=== PATIENT | male | born 1985 | race Caucasian/White ===

== ENCOUNTER 2020-02-25 21:41 | Emergency (ER) | payer SELFPAY ==
[~2020-02-25] VITALS: Ht 170.2 cm; Wt 79.3 kg
[2020-02-25 21:41] VITALS: BP 118/73
--- NOTE | 2020-02-25 22:14 | PHYS DOC ---
Past History Past Medical History: Constipation General Adult HPI: HPI: "..I hurt .. I am constipated.....I am so constipated now...I am having trouble urinating...".. " This has happen maybe 4 times .. I get this bad..... I get constipation..all the time ..but only this bad four times..." Patient is a 34 year old male who presents with above hx and complaints constipation obstipation. Patient has chronic history of constipation, but states currently he has been unable to pass stool because it is too hard. Patient not taking anything for his constipation. Patient has had some bleeding and some small balls of hard stool that he has been able to pass. Patient denies any history immunosuppression. No history recent travel outside the [place] area. Patient works at [employer]. Patient normally follows with at urgent care clinics. Review of Systems: Review of Systems: Constitutional: Denies fever or chills Eyes: Denies change in visual acuity HENT: Denies nasal congestion or sore throat Respiratory: Denies cough or shortness of breath Cardiovascular: Denies chest pain or edema GI: Complains of constipation abdominal pain,. Denies nausea, vomiting, bloody stools or diarrhea : Denies dysuria Musculoskeletal: Denies back pain or joint pain Integument: Denies rash Neurologic: Denies headache, focal weakness or sensory changes Endocrine: Denies polyuria or polydipsia Lymphatic: Denies swollen glands Psychiatric: Denies depression or anxiety Heart Score: Risk Factors: Risk Factors: DM, Current or recent (<one month) smoker, HTN, HLP, family history of CAD, obesity. Risk Scores: Score 0 - 3: 2.5% MACE over next 6 weeks - Discharge Home Score 4 - 6: 20.3% MACE over next 6 weeks - Admit for Clinical Observation Score 7 - 10: 72.7% MACE over next 6 weeks - Early Invasive Strategies Family History: Family History: Noncontributory Current Medications: Current Meds: See nursing for home meds Physical Exam: PE: Constitutional: in acute distress, non-toxic appearance. [] HENT: Normocephalic, atraumatic, bilateral external ears normal, oropharynx moist, no oral exudates, nose normal. [] Eyes: PERRLA, EOMI, conjunctiva normal, no discharge. [] Neck: Normal range of motion, no tenderness, supple, no stridor. [] Cardiovascular:Heart rate regular rhythm, no murmur [] Lungs & Thorax: Bilateral breath sounds equal apex scattered wheezes auscultation [] Abdomen: Bowel sounds normal, soft, distended generalized tenderness, rectal ten derness, no masses, no pulsatile masses. [] Impacted stool. Does have a rectal fissure Skin: Warm, dry, no erythema, no rash. [] Back: No tenderness, no CVA tenderness. [] Extremities: No tenderness, no cyanosis, no clubbing, ROM intact, no edema. [] Neurologic: Alert and oriented X 3, normal motor function, normal sensory function, no focal deficits noted. [] Psychologic: Affect normal, judgement normal, mood normal. [] EKG: EKG: [] Radiology/Procedures: Radiology/Procedures: [][address] [place] [address] IMAGING REPORT Signed PATIENT: CARLOS ENRIQUE LÓPEZ ACCOUNT: [id number] : 1985 LOCATION: ER AGE: 34 SEX: M EXAM STATUS: DEP ER ORD. PHYSICIAN: KE MALIK MD REASON: Abdomen pain, constipation PROCEDURE: ACUTE ABDOMEN SERIES Study: CR ACUTE ABDOMEN SERIES Indication: Abdominal pain. Constipation. Comparison: None. Findings: Unremarkable lungs and cardiomediastinal silhouette/indu. Nonobstructive bowel gas pattern. Mild volume well-formed stool. No free air. No radiographic evidence for organomegaly. No concerning calcifications. Impression: Nonobstructive bowel gas pattern. Mild volume well-formed stool burden. No acute radiographic abnormality of the chest. Electronically signed by: BRADFORD AYALA MD (02/26/2020 1:46 AM) [id number] DICTATED AND SIGNED BY: BRADFORD AYALA MD DATE: 02/26/20 0146 CC: KE MALIK MD; PCP,NO ~ Course & Med Decision Making: Course & Med Decision Making Pertinent Labs and Imaging studies reviewed. (See chart for details) Patient digitally disimpacted- Patient refused to give urine stated that was not a problem. Patient stay on a clear fluid diet only. Patient to drink GoLYTELY 8 ounces a day every day until stooling regular. Patient take only Tylenol for pain. Patient follow-up primary care. Patient return if any concerns. Impression: 1. Constipated obstipation 2. Rectal fissure [] Dragon Disclaimer: Dragon Disclaimer: This electronic medical record was generated, in whole or in part, using a voice recognition dictation system. Departure Departure: Disposition: 01 HOME/RESIDENCE PRIOR TO ADM Condition: STABLE Referrals: PCP,NO (PCP) Scripts Peg 3350/Na Sulf,Bicarb,Cl/Kcl (GOLYTELY SOLUTION) 4,000 Ml Soln.recon 4000 ML PO x1 for constipation, #1 MISC Prov: KE MALIK MD 02/25/20 Justification of Admission: Justification of Admission: Justification of Admission Dx: N/A Dragon Disclaimer This chart was dictated in whole or in part using Voice Recognition software in a busy, high-work load, and often noisy Emergency Department environment. It may contain unintended and wholly unrecognized errors or omissions. Dragon Disclaimer This chart was dictated in whole or in part using Voice Recognition software in a busy, high-work load, and often noisy Emergency Department environment. It may contain unintended and wholly unrecognized errors or omissions. KE MALIK MD Feb 25, 2020 22:14
[2020-02-25] MEDS ORDERED: GLYCERIN ADULT 1 SUPP.RECT. ONE (22:50)
[2020-02-25] MEDS ORDERED: MAGNESIUM CITRATE 296 ML SOLUTION. PO ONE (23:00)
[2020-02-25] MEDS ORDERED: GLYCERIN ADULT 1 SUPP.RECT. PR ONE (23:00)
[2020-02-25] MEDS ORDERED: MAGNESIUM CITRATE 296 ML SOLUTION. ONE (23:14)
[2020-02-25] MEDS ORDERED: PEG4000S8 PO (23:51)
--- NOTE | 2020-02-26 01:49 | RAD ---
Study: CR ACUTE ABDOMEN SERIES Indication: Abdominal pain. Constipation. Comparison: None. Findings: Unremarkable lungs and cardiomediastinal silhouette/indu. Nonobstructive bowel gas pattern. Mild volume well-formed stool. No free air. No radiographic evidence for organomegaly. No concerning calcifications. Impression: Nonobstructive bowel gas pattern. Mild volume well-formed stool burden. No acute radiographic abnormality of the chest. Electronically signed by: BRADFORD AYALA MD (02/26/2020 1:46 AM) [id number]
== END 2020-02-25 23:55 | disposition home or self-care (01) ==
LOC: ER 21:41
DX: K59.00 Constipation, unspecified (principal); K60.2 Anal fissure, unspecified
CPT/HCPCS: 74022; 99283

== ENCOUNTER 2021-01-09 12:33 | Emergency (ER) | payer SELFPAY ==
[~2021-01-09] VITALS: Ht 170.2 cm; Wt 75.0 kg
[~2021-01-09 12:33] MED LIST: PEG4000S8 PO
[2021-01-09] MEDS ORDERED: MORPHINE SULFATE 4 MG/ML DISP.SYRIN. IV ONE ×2 (13:30→14:00)
[2021-01-09] MEDS ORDERED: DIPH,PERTUSS(ACELL),TET VAC/PF 0.5 ML SYRINGE. VAX IM ONE ×2 (13:45→13:54)
--- NOTE | 2021-01-09 13:50 | PHYS DOC ---
Past History Past Medical History: Constipation (TIFFANIE LANTIGUA APRN) Past Surgical History: No Surgical History (TIFFANIE LANTIGUA APRN) Alcohol Use: Rarely (TIFFANIE LANTIGUA APRN) General Adult EDM: Chief Complaint: CELLULITIS HPI: HPI: Patient is a 35-year-old male who presents with abscess to right palm of his hand. Patient states "3 days ago it woke up and just I had a wound to my right hand" "I am unable to use my hand all the way". Patient reports numbness, tingling, pain. Patient states he has been using Neosporin and trying to keep it wrapped. Wound is swollen, red and draining. Denies taking anything for pain. Tetanus is not up-to-date. Denies fever. Denies medical history. (TIFFANIE LANTIGUA APRN) Review of Systems: Review of Systems: Constitutional: Denies fever or chills Eyes: Denies change in visual acuity HENT: Denies nasal congestion or sore throat Respiratory: Denies cough or shortness of breath Cardiovascular: Denies chest pain or edema GI: Denies abdominal pain, nausea, vomiting, bloody stools or diarrhea : Denies dysuria Musculoskeletal: Denies back pain or joint pain Integument: Right hand swelling, drainage Neurologic: Denies headache, focal weakness or sensory changes Endocrine: Denies polyuria or polydipsia Lymphatic: Denies swollen glands Psychiatric: Denies depression or anxiety (TIFFANIE LANTIGUA APRN) Current Medications: Current Meds: Current Medications Medications (Trade) Dose Ordered Sig/Olena Start Time Stop Time Status Last Admin Dose Admin Diphtheria/ Pertussis/Tetanus Vacc (ADACEL TDap SYRINGE) 0.5 ml ONCE ONCE 01/09/21 13:45 01/09/21 13:46 UNV Morphine Sulfate (Morphine 4mg Syringe) 4 mg 1X ONCE 01/09/21 13:30 01/09/21 13:31 DC (TIFFANIE LANTIGUA APRN) Allergies: Allergies: Allergies Coded Allergies Type Severity Reaction Last Updated Verified No Known Drug Allergies 01/09/21 No (TIFFANIE LANTIGUA APRN) Physical Exam: PE: Constitutional: Well developed, well nourished, no acute distress, non-toxic appearance. [] HENT: Normocephalic, atraumatic, bilateral external ears normal, oropharynx moist, no oral exudates, nose normal. [] Eyes: PERRLA, EOMI, conjunctiva normal, no discharge. [] Neck: Normal range of motion, no tenderness, supple, no stridor. [] Cardiovascular:Heart rate regular rhythm, no murmur [] Lungs & Thorax: Bilateral breath sounds clear to auscultation [] Abdomen: Bowel sounds normal, soft, no tenderness, no masses, no pulsatile masses. [] Skin: Swelling, drainage, redness Back: No tenderness, no CVA tenderness. [] Extremities: Right hand tenderness, swelling, drainage Neurologic: Alert and oriented X 3, normal motor function, normal sensory function, no focal deficits noted. [] Psychologic: Affect normal, judgement normal, mood normal. [] (TIFFANIE LANTIGUA APRN) Current Patient Data: Vital Signs: Vital Signs Date Time Temp Pulse Resp B/P (MAP) Pulse Ox O2 Delivery O2 Flow Rate FiO2 01/09/21 12:52 98.5 80 18 143/73 98 Room Air (TIFFANIE LANTIGUA APRN) EKG: EKG: [] (TIFFANIE LANTIGUA APRN) Radiology/Procedures: Radiology/Procedures: []EXAMINATION: Right and radiograph. VIEWS: 3 COMPARISON: None INDICATION:35 years, Male, swelling. FINDINGS: No acute fracture, dislocation or subluxation. No bone erosion or periosteal reaction. Olivo soft tissue swelling. IMPRESSION: Olivo soft tissue swelling without acute osseous process. Electronically signed by: Arnel Ellis MD (01/09/2021 2:11 PM) [id number] (TIFFANIE LANTIGUA APRN) Heart Score: C/O Chest Pain: No Risk Factors: Risk Factors: DM, Current or recent (<one month) smoker, HTN, HLP, family history of CAD, obesity. Risk Scores: Score 0 - 3: 2.5% MACE over next 6 weeks - Discharge Home Score 4 - 6: 20.3% MACE over next 6 weeks - Admit for Clinical Observation Score 7 - 10: 72.7% MACE over next 6 weeks - Early Invasive Strategies (TIFFANIE LANTIGUA APRN) Course & Med Decision Making: Course & Med Decision Making Pertinent Labs and Imaging studies reviewed. (See chart for details) [] 35-year-old male presents with abscess to the right palm of his hand. Patient states that he thinks he was bit by something 3 days ago. Patient unable to close hand completely due to swelling. Palm is red, swollen drainage. Patient is also reporting numbness and tingling. Patient given 4 mg of morphine for pain. Tetanus was given. Vitals are stable and patient is afebrile. Patient started on vancomycin, 1 g. I consulted with Ortho. and spoke with Dr. Francis who wants to admit patient to [facility] for cellulitis of hand. Spoke with hospitalist Dr. Meyers, who will be accepting patient.. Dr. Arshad wanted patient started on Zosyn as well. WBC 13.1, creatinine 0.6. Hand x-ray was unremarkable. Shows soft tissue swelling to right palm. Patient reports he is still having pain. Patient given 1 of Dilaudid. Discussed admission plan with patient. Patient is okay with plan to be transferred to [facility]. Patient is hemodynamically stable. (TIFFANIE LANTIGUA APRN) Dragon Disclaimer: Dragon Disclaimer: This electronic medical record was generated, in whole or in part, using a voice recognition dictation system. (TIFFANIE LANTIGUA APRN) Departure Departure: Impression: Primary Impression: Cellulitis Qualified Codes: L03.818 - Cellulitis of other sites Disposition: 02 SHORT TERM HOSPITAL Admitting Physician: Other (TIFFANIE LANTIGUA APRN) Condition: STABLE Referrals: PCP,NO (PCP) Attending Signature Attending Signature I have participated in the care of this patient and I have reviewed and agree with all pertinent clinical information above including history, exam, and recommendations. (KE MALIK MD) TIFFANIE LANTIGUA APRN Jan 09, 2021 13:50 EK MALIK MD Jan 10, 2021 03:33
[2021-01-09] MEDS ORDERED: IV NORMAL SALINE 1,000ML 1,000 ML IV ONE (14:00)
[2021-01-09] MEDS ORDERED: VANCOMYCIN PER PHARMACY MC PRN (14:00)
[2021-01-09 14:03] LABS: BASO # 0.1 x10^3/uL (0.0-0.2); BASO % 1 % (0-3); EOS # 0.1 x10^3/uL (0.0-0.7); EOS % 1 % (0-3); HEMATOCRIT 37.5 % (39.0-53.0); HEMOGLOBIN 12.6 g/dL (13.0-17.5); LYMPH # 1.7 x10^3/uL (1.0-4.8); LYMPH % 13 % (24-48); MEAN CORPUSCULAR HEMOGLOBIN 28 pg (25-35); MEAN CORPUSCULAR HGB CONC 34 g/dL (31-37); MEAN CORPUSCULAR VOLUME 83 fL (79-100); MONO # 0.9 x10^3/uL (0.0-1.1); MONO % 7 % (0-9); NEUT # 10.3 x10^3uL (1.8-7.7); NEUT % 78 % (31-73); PLATELET COUNT 423 x10^3/uL (140-400); RED BLOOD COUNT 4.52 x10^6/uL (4.30-5.70); RED CELL DISTRIBUTION WIDTH 15.1 % (11.5-14.5); WHITE BLOOD COUNT 13.1 x10^3/uL (4.0-11.0)
[2021-01-09] MEDS ORDERED: VANCOMYCIN 1 GM VIAL. ONE (14:07)
[2021-01-09] MEDS ORDERED: IV NORMAL SALINE 500ML 500 ML ONE (14:07)
--- NOTE | 2021-01-09 14:13 | RAD ---
EXAMINATION: Right and radiograph. VIEWS: 3 COMPARISON: None INDICATION:35 years, Male, swelling. FINDINGS: No acute fracture, dislocation or subluxation. No bone erosion or periosteal reaction. Olivo soft ti ssue swelling. IMPRESSION: Olivo soft tissue swelling without acute osseous process. Electronically signed by: Arnel Ellis MD (01/09/2021 2:11 PM) [id number]
[2021-01-09] MEDS ORDERED: VANCOMYCIN 2 GM in IV NORMAL SALINE 500ML 500 ML IV ONE (14:15)
[2021-01-09 14:16] LABS: CREATININE 0.6 mg/dL (0.7-1.3); GFR 153.3
[2021-01-09] MEDS ORDERED: HYDROmorphone PF 1 MG/ML DISP.SYRIN IVP ONE ×3 (14:30→21:00)
[2021-01-09 15:28] LABS: BARBITURATES NEG (NEG); BENZODIAZEPINES NEG (NEG); CANNABINOIDS POS (NEG); COCAINE NEG (NEG); METHADONE NEG (NEG); OPIATES POS (NEG); PHENCYCLIDINE NEG (NEG)
[2021-01-09 15:30] LABS: AMPHETAMINE/METHAMPHETAMINE NEG (NEG)
[2021-01-09 15:34] LABS: BILIRUBIN,URINE NEG (NEG); CLARITY,URINE CLEAR; COLOR,URINE YELLOW; GLUCOSE,URINE NEG (NEG)
[2021-01-09 15:35] LABS: NITRITE,URINE NEG (NEG); UROBILINOGEN,URINE 0.2 mg/dL (0.2 mg/dL)
[2021-01-09 15:36] LABS: BACTERIA,URINE 0 /HPF (0-FEW); RBC,URINE RARE /HPF (0-2); SQUAMOUS EPITHELIAL CELL,UR OCC /LPF; WBC,URINE RARE /HPF (0-4)
[2021-01-09] MEDS ORDERED: LORazepam 1 MG TABLET PO ONE ×2 (17:30→21:00)
[2021-01-09] MEDS ORDERED: PIPERACILLIN/TAZOBACTAM 3.375 GM VIAL IV ONE (20:43)
[2021-01-09] MEDS ORDERED: IV NORMAL SALINE 50ML 50 ML ONE (20:43)
[2021-01-09 20:50] VITALS: BP 145/87
[2021-01-09] MEDS ORDERED: PIPERACILLIN/TAZOBACTAM 3.375 GM in IV NORMAL SALINE 50ML 50 ML IV ONE (21:00)
== END 2021-01-09 21:30 | disposition short-term general hospital (02) ==
LOC: ER 12:33
DX: L03.113 Cellulitis of right upper limb (principal); R20.0 Anesthesia of skin; K59.00 Constipation, unspecified
CPT/HCPCS: 36415; 73130; 80048; 80307; 81001; 85025; 90471; 90715; 96365; 96367; 96375; 96376; 99285; J1170; J2270; J2543; J3370; J7030; J7040

== ENCOUNTER 2021-04-04 04:06 | Emergency (ER) | payer SELFPAY ==
[~2021-04-04] VITALS: Ht 170.2 cm; Wt 70.0 kg
--- NOTE | 2021-04-04 04:27 | PHYS DOC ---
Past History Past Medical History: Constipation Past Surgical History: No Surgical History Alcohol Use: Rarely Adult General Chief Complaint Chief Complaint: HAND PROBLEM HPI HPI Patient is a 35-year-old male presenting for skin lesions. This is an acute on chronic problem. Reports numerous track dennison all over bilateral upper extremities most focal to his antecubital regions but reports he does not do any drugs. States he uses his hands a lot and has been doing a lot of sink work, states he might of gotten iron/metallic filament stuck in his hands causing the dennison. Reports he has a lesion on his left palmar surface of hand that enlarged into a fluid-filled pustule that popped after stimulation. Denies any mucopurulent discharge but clear fluid-filled blister like material was expressed. He was concern for infection and presented to our ER for evaluation. He otherwise takes Adderall with no recent medication/dose changes, no other known medical issues, denies tobacco alcohol or illicit drug use Review of Systems Review of Systems Fourteen body systems of review of systems have been reviewed. See HPI for pertinent positives and negative responses, other rios all other systems are negative, non-pertinent or non-contributory Allergies Allergies Allergies Coded Allergies Type Severity Reaction Last Updated Verified No Known Drug Allergies 01/09/21 No Physical Exam Physical Exam Constitutional: Well developed, well nourished, no acute distress, non-toxic appearance. HENT: Normocephalic, atraumatic, bilateral external ears normal, oropharynx moist, no oral exudates, nose normal. Eyes: PERRLA, EOMI, conjunctiva injected bilaterally, no discharge. Neck: Normal range of motion, no tenderness, supple, no stridor. Cardiovascular: Heart rate regular, heart sounds unremarkable with no murmurs rubs or gallops Lungs & Thorax: No respiratory distress or accessory muscle use, bilateral chest rise, clear to auscultation bilaterally Abdomen: Abdomen soft, non-tender, bowel sounds present in all quadrants, no guarding or rebound, nonacute abdomen. Skin: Warm, dry, no erythema, has several scratches present to bilateral upper extremities in addition to areas of self excoriation to bilateral upper extremities with my significant area on left palmar surface of hand Back: No tenderness, no CVA tenderness. Extremities: No tenderness, no cyanosis, no clubbing, ROM intact, no edema. Neurologic: Alert and oriented X 3, grossly normal motor & sensory function, no focal deficits noted. Psychologic: Scattered thought process, pressured speech, appears actively under the influence of unknown medication Current Patient Data Vital Signs Vital Signs Date Time Temp Pulse Resp B/P (MAP) Pulse Ox O2 Delivery O2 Flow Rate FiO2 04/04/21 04:23 98.2 84 22 149/101 (117) 95 Room Air EKG EKG [] Radiology/Procedures Radiology/Procedures [] Heart Score C/O Chest Pain: No Risk Factors: Risk Factors: DM, Current or recent (<one month) smoker, HTN, HLP, family history of CAD, obesity. Risk Scores: Risk Factors: DM, Current or recent (<one month) smoker, HTN, HLP, family history of CAD, obesity. Course & Med Decision Making Course & Med Decision Making ABCs unremarkable History and physical examination nonconcerning for any emergent or surgical issues Patient has numerous concerning skin findings which based on clinical picture concerning for ongoing IV drug abuse. He also appears high from an unknown substance, I question marijuana and/or methamphetamine Discussed really care with patient. Joint decision made to apply triple antibiotic ointment to recently popped pustule on left palm and wrap. Also joint decision to administer 1 g Rocephin prior to ER departure Close follow-up with primary care provider advised for continuity of care and to review ER visit today. Strict return precautions were discussed with verbalized understanding by patient. All questions and concerns addressed prior to ER departure Dragon Disclaimer Dragon Disclaimer This electronic medical record was generated, in whole or in part, using a voice recognition dictation system. Departure Departure: Impression: Primary Impression: Skin infection Disposition: HOME / SELF CARE / HOMELESS Condition: STABLE Referrals: PCP,NO (PCP) Additional Instructions: As discussed prior to ER departure, your vitals and physical exam were nonconcerning for any emergent or surgical issues. Triple antibiotic ointment was applied to your left palm and you were given IM Rocephin antibiotic for your suspect skin lesion infections. Please stop picking at your skin. Please continue good skin hygiene washing with soap and water daily. Please also follow-up with your primary care provider to review ER visit today and for continuity of care. Any concerning signs or symptoms present do not hesitate to come back for repeat evaluation. It was a pleasure to take care of you and I wish you the best going forward ANISHA SCHWARZ 4, 2021 04:27
[2021-04-04 04:40] VITALS: BP 136/87
[2021-04-04] MEDS ORDERED: cefTRIAXone SODIUM 1 GM VIAL ONE (04:40)
[2021-04-04] MEDS ORDERED: cefTRIAXone IM 1 GM VIAL IM ONE (04:45)
[2021-04-04] MEDS ORDERED: NEOMY/BACITR/POLYMYXIN OINT PACKET. TP ONE (04:45)
[2021-04-04] MEDS ORDERED: adderall (05:26)
== END 2021-04-04 05:22 | disposition home or self-care (01) ==
LOC: ER 04:06
DX: L08.89 Other specified local infections of the skin and subcutaneous tissue (principal)
CPT/HCPCS: 96372; 99283; J0696